=== PATIENT | female | born 1995 ===

== ENCOUNTER 2020-08-12 14:20 | Outpatient (REF) | payer BC, SELFPAY ==
--- NOTE | 2020-08-12 10:30 | PAPFT_PTH ---
PATIENT: Sera Brock LOC: [facility] U#:[id number] AGE/SX: 24/F ROOM: RE08/12/[address]: Ginna Duke APRN : 1995 BED: DIS: 08/12/2020 SPEC #: [id number] RECD: 08/13/20 13:06 STATUS: [place] REYuki #: [id number] ANNCY: 08/12/20 10:[address]: Ginna Duke DEPT: [facility] Cytology RECD BY: Hannah Casas Tissues: 1 - CX/ENDOCX FOR PAP SMEARS Procedures: PAP THIN PREP/[facility] Screening Comments: [id number]
== END 2020-08-12 14:40 ==
LOC: LBN 14:20
DX: Z12.4 Encounter for screening for malignant neoplasm of cervix (principal)
CPT/HCPCS: 88142

== ENCOUNTER 2020-08-18 02:47 | Outpatient (CLI) | payer BC, SELFPAY ==
[2020-08-18 11:38] LABS: ALT 21 U/L (14-59); AST 12 U/L (15-37); Albumin 3.7 g/dL (3.4-5.0); Alkaline Phosphatase 63 U/L (46-116); BUN 8 mg/dL (7-18); Bilirubin, Total 0.3 mg/dL (0.2-1.0); CREATININE 0.81 mg/dL (0.55-1.02); Calculated LDL 99 mg/dL (<100); Chloride 105 mmol/L (98-107); Cholesterol 177 mg/dL (<200); Glucose 93 mg/dL (74-106); HDL Cholesterol 67 mg/dL (40-60); Potassium 4.1 mmol/L (3.5-5.1); Sodium 139 mmol/L (136-145); Total Protein 7.5 g/dL (6.4-8.2); Triglyceride 58 mg/dL (<150)
== END 2020-08-18 03:07 ==
DX: Z00.00 Encounter for general adult medical examination without abnormal findings (principal); Z13.220 Encounter for screening for lipoid disorders
CPT/HCPCS: 36415; 80053; 80061

== ENCOUNTER 2021-09-10 18:24 | Outpatient (REF) | payer SELFPAY ==
[2021-09-11 20:29] LABS: COVID-19 RT-PCR UVMMC Result Negative (Negative)
== END 2021-09-10 18:25 | disposition home or self-care (01) ==
LOC: LBN 18:24
PROVIDERS: Visit Provider Nurse Practitioner Family
DX: Z20.822 Contact with and (suspected) exposure to COVID-19 (principal)
CPT/HCPCS: U0003

== ENCOUNTER → 2022-04-02 14:57 | Outpatient (CLI) | payer MEDICAID, SELFPAY ==
--- NOTE | 2022-04-02 12:15 | DI.CT_ITS ---
Exam(s) CT CERVICAL SPINE WO EXAM: CT CERVICAL SPINE WO CLINICAL HISTORY: Neck injury with left arm weakness S19.9XXA. TECHNIQUE: CT Examination of the cervical spine was performed utilizing multislice acquisition and m ultiplanar reconstruction. COMPARISON: No exams were available for comparison FINDINGS: The visualized lung apices are clear. The tracholaryngeal structures appear intact. No cervical mass or adenopathy seen. Intervertebral disc spaces are well maintained. No gross cervical disc herniation by CT criteria. Facet joints are normal. No bony abnormality seen. IMPRESSION: Normal cervical spine CT RADIATION DOSE DELIVERED: 414.07mGy.cm Total DLP 414.07mGy.cm Total DLP !Error CTDIvol DATA REPOSITORY: All CT scans at this facility are submitted to the National Radiology Data Registry (NRDR) Dose Index Registry (DIR) with the [employer] [place] [employer] (ACR). RADIATION OPTIMIZATION: All CT scans at this facility use at least one of these dose optimization te chniques: automated exposure control; mA and/or kV adjustment per patient size (includes targeted exa ms where dose is matched to clinical indication); or iterative reconstruction.
== END ==
PROVIDERS: Visit Provider Nurse Practitioner Family
DX: S19.89XA Other specified injuries of other specified part of neck, initial encounter; M62.81 Muscle weakness (generalized)
CPT/HCPCS: 72125

== ENCOUNTER 2022-12-04 06:47 | Emergency (ER) | payer MEDICAID, SELFPAY ==
[2022-12-04 06:51] VITALS: BP 126/73; PULSE 108; RESP 22; TEMP 36.9; O2SAT 98
--- OUTSIDE RECORDS SUMMARY | 2022-12-04 06:54 | XMS_ITS | CCD ---
Author Name Unknown Address [address] [place] [address] [id number] Organization Unknown Address [address] [place] [address] [phone] Care Team Providers Care Genetic Counselor Name Role Phone SÁNCHEZ LORA Attending Physician [phone] SÁNCHEZ LORA Rounding (Secondary) Physicia n [phone] Vital Signs Unknown or Not Available. Allergies Unknown or Not Available. Procedures Unknown or Not Available. History of Immunizations Unknown or Not Available. Problems Unknown or Not Available. Results Unknown or Not Available. Active Medications Unknown or Not Available. Medications Administered During Visit Unknown or Not Available. Encounters Encounter Diagnosis Diagnosis Code Start Date Verruca plantaris [id number] 10/09/2021 Social History Smoking Status Code Start Date End Date Never smoker [id number] Patient Decision Aids Unknown or Not Available. Discharge Instructions You were admitted to [facility] on 10/09/2021 14:27 with a principal diagnosis of Plantar wart You were discharged from [facility] on 10/09/2021 00:00 Should you have any questions prior to discharge, please contact a member of your healthcare team. If you have left the hospital and have any questions, please contact your primary care physician. Chief Complaint and Reason For Visit Unknown or Not Available. Function Status Unknown or Not Available. Plan of Care Unknown or Not Available. Referral/Transition of Care Unknown or Not Available.
--- OUTSIDE RECORDS SUMMARY | 2022-12-04 06:55 | XMS_ITS | CCD ---
Author Name Unknown Address [address] [place] [address] [phone] Organization Unknown Address [address] [place] [address] [id number] Care Team Providers Care Pourer Off Name Role Phone SÁNCHEZ LORA Attending Physician [phone] SÁNCHEZ LORA Rounding (Secondary) Physicia n [phone] Vital Signs Unknown or Not Available. Allergies Unknown or Not Available. Procedures Unknown or Not Available. History of Immunizations Unknown or Not Available. Problems Unknown or Not Available. Results Unknown or Not Available. Active Medications Unknown or Not Available. Medications Administered During Visit Unknown or Not Available. Encounters Encounter Diagnosis Diagnosis Code Start Date Verruca plantaris [id number] 01/29/2022 Social History Smoking Status Code Start Date End Date Never smoker [id number] Patient Decision Aids Unknown or Not Available. Discharge Instructions You were admitted to [facility] on 01/29/2022 14:06 with a principal diagnosis of Plantar wart You were discharged from [facility] on 01/29/2022 00:00 Should you have any questions prior [...]
--- OUTSIDE RECORDS SUMMARY | 2022-12-04 06:55 | XMS_ITS | CCD ---
Author Name Unknown Address [address] [place] [address] [id number] Organization Unknown Address [address] [place] [address] [id number] Care Team Providers Care Biometry Teacher Name Role Phone SÁNCHEZ LORA Attending Physician [phone] SÁNCHEZ LORA Rounding (Secondary) Physicia n [phone] Vital Signs Unknown or Not Available. Allergies Unknown or Not Available. Procedures Unknown or Not Available. History of Immunizations Unknown or Not Available. Problems Unknown or Not Available. Results Unknown or Not Available. Active Medications Unknown or Not Available. Medications Administered During Visit Unknown or Not Available. Encounters Encounter Diagnosis Diagnosis Code Start Date Verruca plantaris [id number] 12/04/2021 Social History Smoking Status Code Start Date End Date Never smoker [id number] Patient Decision Aids Unknown or Not Available. Discharge Instructions You were admitted to on 12/04/2021 15:21 with a principal diagnosis of Plantar wart You were discharged from on 12/04/2021 00:00 Should you have any questions prior [...]
--- OUTSIDE RECORDS SUMMARY | 2022-12-04 06:55 | XMS_ITS | CCD ---
Author Name Unknown Address [address] [place] [address] [phone] Organization Unknown Address [address] [place] [address] [phone] Care Team Providers Care Process Equipment Operator Name Role Phone SÁNCHEZ LORA Attending Physician [phone] SÁNCHEZ LORA Rounding (Secondary) Physicia n [phone] Vital Signs Unknown or Not Available. Allergies Unknown or Not Available. Procedures Unknown or Not Available. History of Immunizations Unknown or Not Available. Problems Unknown or Not Available. Results Unknown or Not Available. Active Medications Unknown or Not Available. Medications Administered During Visit Unknown or Not Available. Encounters Encounter Diagnosis Diagnosis Code Start Date Verruca plantaris [id number] 01/05/2022 Social History Smoking Status Code Start Date End Date Never smoker [id number] Patient Decision Aids Unknown or Not Available. Discharge Instructions You were admitted to [facility] on 01/05/2022 10:21 with a principal diagnosis of Plantar wart You were discharged from [facility] on 01/05/2022 00:00 Should you have any questions prior [...]
--- OUTSIDE RECORDS SUMMARY | 2022-12-04 06:55 | XMS_ITS | CCD ---
Author Name Unknown Address [address] [place] [address] [phone] Organization Unknown Address [address] [place] [address] [phone] Care Team Providers Care Processing Manager Name Role Phone SÁNCHEZ LORA Attending Physician [phone] SÁNCHEZ LORA Rounding (Secondary) Physicia n [phone] Vital Signs Unknown or Not Available. Allergies Unknown or Not Available. Procedures Unknown or Not Available. History of Immunizations Unknown or Not Available. Problems Unknown or Not Available. Results Unknown or Not Available. Active Medications Unknown or Not Available. Medications Administered During Visit Unknown or Not Available. Encounters Encounter Diagnosis Diagnosis Code Start Date Verruca plantaris [id number] 10/30/2021 Social History Smoking Status Code Start Date End Date Never smoker [id number] Patient Decision Aids Unknown or Not Available. Discharge Instructions You were admitted to [facility] on 10/30/2021 14:19 with a principal diagnosis of Plantar wart You were discharged from [facility] on 10/30/2021 00:00 Should you have any questions prior [...]
--- OUTSIDE RECORDS SUMMARY | 2022-12-04 06:56 | XMS_ITS | CCD ---
Author Name Unknown Address [address] [place] [address] [phone] Organization Unknown Address [address] [place] [address] [phone] Care Team Providers Care Forestry Farm Laborer Name Role Phone SÁNCHEZ LORA Attending Physician [phone] SÁNCHEZ LORA Rounding (Secondary) Physicia n [phone] Vital Signs Unknown or Not Available. Allergies Unknown or Not Available. Procedures Unknown or Not Available. History of Immunizations Unknown or Not Available. Problems Unknown or Not Available. Results Unknown or Not Available. Active Medications Unknown or Not Available. Medications Administered During Visit Unknown or Not Available. Encounters Encounter Diagnosis Diagnosis Code Start Date Verruca plantaris [id number] 08/21/2021 Social History Smoking Status Code Start Date End Date Never smoker [id number] Patient Decision Aids Unknown or Not Available. Discharge Instructions You were admitted to [facility] on 08/21/2021 12:43 with a principal diagnosis of Plantar wart You were discharged from [facility] on 08/21/2021 00:00 Should you have any questions prior [...]
--- OUTSIDE RECORDS SUMMARY | 2022-12-04 06:56 | XMS_ITS | CCD ---
Author Name Unknown Address [address] [place] [address] [id number] Organization Unknown Address [address] [place] [address] [phone] Care Team Providers Care Agriculture Laborer Name Role Phone CLEM BECKETT Attending Physician [phone] CLEM BECKETT Rounding (Secondary) Physician [phone] Vital Signs Unknown or Not Available. Allergies Unknown or Not Available. Procedures Unknown or Not Available. History of Immunizations Unknown or Not Available. Problems Unknown or Not Available. Results Unknown or Not Available. Active Medications Unknown or Not Available. Medications Administered During Visit Unknown or Not Available. Encounters Encounter Diagnosis Diagnosis Code Start Date Verruca plantaris [id number] 04/13/2022 Social History Smoking Status Code Start Date End Date Never smoker [id number] Patient Decision Aids Unknown or Not Available. Discharge Instructions You were admitted to [facility] on 04/13/2022 10:56 with a principal diagnosis of Plantar wart You were discharged from [facility] on 04/13/2022 00:00 Should you have any questions prior [...]
--- OUTSIDE RECORDS SUMMARY | 2022-12-04 06:56 | XMS_ITS | CCD ---
Author Name Unknown Address [address] [place] [address] [phone] Organization Unknown Address [address] [place] [address] [phone] Care Team Providers Care Acid Polymerization Operator Name Role Phone SÁNCHEZ LORA Attending Physician [phone] SÁNCHEZ LORA Rounding (Secondary) Physicia n [phone] Vital Signs Unknown or Not Available. Allergies Unknown or Not Available. Procedures Unknown or Not Available. History of Immunizations Unknown or Not Available. Problems Unknown or Not Available. Results Unknown or Not Available. Active Medications Unknown or Not Available. Medications Administered During Visit Unknown or Not Available. Encounters Encounter Diagnosis Diagnosis Code Start Date Verruca plantaris [id number] 09/18/2021 Social History Smoking Status Code Start Date End Date Never smoker [id number] Patient Decision Aids Unknown or Not Available. Discharge Instructions You were admitted to [facility] on 09/18/2021 13:19 with a principal diagnosis of Plantar wart You were discharged from [facility] on 09/18/2021 00:00 Should you have any questions prior [...]
--- OUTSIDE RECORDS SUMMARY | 2022-12-04 06:56 | XMS_ITS | CCD ---
Author Name Unknown Address [address] [place] [address] [phone] Organization Unknown Address [address] [place] [address] [phone] Care Team Providers Care Die Cleaner Name Role Phone CLEM BECKETT Attending Physician [phone] CLEM BECKETT Rounding (Secondary) Physician [phone] Vital Signs Unknown or Not Available. Allergies Unknown or Not Available. Procedures Unknown or Not Available. History of Immunizations Unknown or Not Available. Problems Unknown or Not Available. Results Unknown or Not Available. Active Medications Unknown or Not Available. Medications Administered During Visit Unknown or Not Available. Encounters Encounter Diagnosis Diagnosis Code Start Date Verruca plantaris [id number] 03/19/2022 Social History Smoking Status Code Start Date End Date Never smoker [id number] Patient Decision Aids Unknown or Not Available. Discharge Instructions You were admitted to [facility] on 03/19/2022 08:59 with a principal diagnosis of Plantar wart You were discharged from [facility] on 03/19/2022 00:00 Should you have any questions prior [...]
--- OUTSIDE RECORDS SUMMARY | 2022-12-04 06:56 | XMS_ITS | CCD ---
Author Name Unknown Address [address] [place] [address] [id number] Organization Unknown Address [address] [place] [address] [phone] Care Team Providers Care Senior Program Analyst Name Role Phone SÁNCHEZ LORA Attending Physician [phone] SÁNCHEZ LORA Rounding (Secondary) Physicia n [phone] Vital Signs Unknown or Not Available. Allergies Unknown or Not Available. Procedures Unknown or Not Available. History of Immunizations Unknown or Not Available. Problems Unknown or Not Available. Results Unknown or Not Available. Active Medications Unknown or Not Available. Medications Administered During Visit Unknown or Not Available. Encounters Encounter Diagnosis Diagnosis Code Start Date Verruca plantaris [id number] 03/10/2022 Social History Smoking Status Code Start Date End Date Never smoker [id number] Patient Decision Aids Unknown or Not Available. Discharge Instructions You were admitted to [facility] on 03/10/2022 09:59 with a principal diagnosis of Plantar wart You were discharged from [facility] on 03/10/2022 00:00 Should you have any questions prior [...]
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
[2022-12-04] MEDS: metroNIDAZOLE 500 MG TAB 2000 MG PO (07:43)
[2022-12-04] MEDS: cefTRIAXone 1 GM VIAL 0.5 GM IM (07:44)
[2022-12-04] MEDS: Doxycycline Hyclate 100 MG, 2 CAPS/BTL PO (07:44)
[2022-12-04] MEDS: Lidocaine 1% Pres-Free 5 ML VIAL (07:45)
[2022-12-06 12:11] LABS: Chlamydia Result Negative (Negative); GC Result Negative (Negative)
[2022-12-06 15:41] LABS: HSV 1 DNA Result Negative (Negative); HSV 2 DNA Result Negative (Negative)
== END 2022-12-04 07:51 | disposition home or self-care (01) ==
PROVIDERS: Emergency Provider Student in an Organized Health Care Education/Training Program; PCP Nurse Practitioner Family
DX: J36 Peritonsillar abscess (principal)
CPT/HCPCS: 87491; 87529; 87591; 87880; 96372; 99284; 87081; J0696

== ENCOUNTER 2022-12-28 22:22 | Outpatient (REF) | payer MEDICAID, SELFPAY ==
[2022-12-28 22:01] LABS: Abs Immature Grans 0.01 10^3/uL (0.0-0.06); Absolute Basophil Count 0.03 10^3/uL (0.0-0.2); Absolute Eosinophil Count 0.06 10^3/uL (0.0-0.7); Absolute Monocyte Count 0.45 10^3/uL (0.1-0.8); Absolute Neutrophil Count 2.65 10^3/uL (1.2-6.7); Basophils % 0.5; Eosinophils % 1.1; HCT 38.7 % (36.0-46.0); HGB 12.7 g/dL (11.2-15.7); Immature Grans % 0.2; Lymphocytes % 43.9; MCH 26.2 pg (27.0-33.0); MCHC 32.8 % (32.0-36.0); MCV 80 fL (80-95); Monocytes % 7.9; Neutrophils % 46.4; Platelet Count 306 10^3/uL (130-400); RBC 4.85 10^6/uL (3.93-5.22); RDW 13.4 % (11.7-14.6); RDW-SD 38.9 fL
[2022-12-31 12:51] LABS: EBNA IgG Positive (Negative); EBV Interpretation (See Note); VCA IgG Positive (Negative); VCA IgM Negative (Negative)
== END 2022-12-28 22:23 | disposition home or self-care (01) ==
LOC: NCHCN 22:22
PROVIDERS: PCP Nurse Practitioner Family; Visit Provider Nurse Practitioner Family
DX: J02.9 Acute pharyngitis, unspecified (principal)
CPT/HCPCS: 85025; 86664; 86665